=== PATIENT | female | born 1965 | race Two or more races ===

== ENCOUNTER 2020-03-09 23:15 | Inpatient (IN) | payer MEDICARE, MEDICAID ==
[~2020-03-09] VITALS: Ht 154.9 cm; Wt 94.4 kg
--- NOTE | 2020-03-09 23:15 | NUR ---
Direct Admit Note GERMANIA BUTCHER admitted to Telemetry unit as a direct admit from [facility]. Patient oriented to MAREK MCCRARY RN primary RN, unit, room, bed, and unit policies regarding patient care and visiting hours. Patient now on continuous telemetry monitoring, tele box # [id number] and telemetry reading on arrival to unit is sinus rhythm. Patient placed on bedside oxygen, weighed by bedscale and encouraged to call if they need something. All questions and concerns addressed, patient verbalized understanding. MD notified of patients arrival and admit orders received.
[2020-03-09 23:30] VITALS: BP 141/89
[2020-03-10] MEDS ORDERED: ACETAMINOPHEN 500 MG TAB PO PRN
[2020-03-10] MEDS ORDERED: ONDANSETRON HCL 4 MG/2 ML VIAL IV PRN
[2020-03-10] MEDS ORDERED: MORPHINE SULF INJ 2 MG/ML SYRINGE 1ML IV PRN
[2020-03-10] MEDS ORDERED: TRAM50TA2 PO (00:11)
[2020-03-10] MEDS ORDERED: ATOR10TA PO (00:11)
[2020-03-10] MEDS ORDERED: PNEUMOCOCCAL VACC POLYS 25 MCG/0.5 ML VIAL IM ONE (00:15)
[2020-03-10] MEDS ORDERED: ENOXAPARIN SOD 100 MG/1 ML SYRINGE SC ONE (01:00)
[2020-03-10] MEDS: SODIUM CHLORIDE 0.9% 1,000 ML IV SCH ×2 (01:12→14:45)
--- NOTE | 2020-03-10 02:00 | NUR ---
CHEST PAIN Patient c/o 5/10 chest tightness. EKG performed and placed in chart. Vitals signs assessed. BP is 142/100, HR: 73. One dose of Nitroglycerin 0.4mg administered. Reassessed after minutes and patient reports relief of pain. BP is now 137/81, HR: 70. Patient instructed to notify immediately if chest pain returns. Verbalizes understanding. Will continue to monitor for changes PRN.
[2020-03-10] MEDS: NITROGLYCERIN 0.4 MG SL TAB SL PRN ×2 (02:06→08:10)
[2020-03-10 05:00] VITALS: BP 125/82
[2020-03-10 07:44] LABS: Basophils # (auto) 0 10 ^3/uL (0-0.2); Basophils % (auto) 0.5 % (0.0-2.0); Eosinophils # (auto) 0.1 10 ^3/uL (0-0.8); Eosinophils % (auto) 1.9 % (0.0-7.0); Hematocrit 38.9 % (36.0-46.0); Lymphocytes # (auto) 2.2 10 ^3/uL (0.4-5.4); Lymphocytes % (auto) 31.5 % (10.0-50.0); Mean Corpuscular Hemoglobin 30.9 pg (28.0-32.0); Mean Corpuscular Hgb Conc. 33.5 g/dL (32.0-36.0); Mean Corpuscular Volume 92.2 fL (80.0-100.0); Monocytes # (auto) 0.8 10 ^3/uL (0-1.3); Monocytes % (auto) 11.4 % (0.0-12.0); Neutrophils # (auto) 3.9 10 ^3/uL (1.6-8.6); Neutrophils % (auto) 54.7 % (37.0-80.0); Platelet Count (auto) 281 10^3/uL (140-450); Red Blood Cells 4.22 10^6/uL (4.0-5.20); Red Cell Distribution Width 13.6 % (11.8-14.3); White Blood Cell 7.1 10^3/uL (4.4-10.8)
[2020-03-10 07:53] LABS: INR 1.03 (0.9-1.15); Partial Thromboplastin Time 32.5 sec (23.0-31.2)
[2020-03-10 07:56] LABS: Albumin 3.4 g/dL (3.4-5.0); Calcium 8.6 mg/dL (8.5-10.1); Potassium 3.7 mmol/L (3.5-5.1)
[2020-03-10 08:00] LABS: BUN/Creatinine Ratio 14.5; Bilirubin, Total 0.6 mg/dL (0.2-1.0); Total Protein 6.7 g/dL (6.4-8.2)
--- NOTE | 2020-03-10 08:00 | NUR ---
Opening Shift Note Assumed care of patient, awake and alert. No S/S of distress/SOB, denied chest pain. Instructed on POC and to call for assist PRN, will continue to monitor for changes Q1hr and PRN.
--- NOTE | 2020-03-10 08:15 | NUR ---
CHEST PAIN Patient c/o 5/10 chest tightness the same as this morning. Vitals signs assessed. BP is 143/83, HR: 78 o2sat:98% R14 relaxed and even. One dose of Nitroglycerin 0.4mg administered. Reassessed after 5 minutes and patient reports relief of pain pain now 0/0. BP is now BP:135/75, HR: 65 o2sat:99% R14 relaxed and even. Patient instructed to notify immediately if chest pain returns. Verbalizes understanding. Will continue to monitor for changes PRN.
[2020-03-10 09:01] VITALS: BP 143/83
--- NOTE | 2020-03-10 09:30 | NUR ---
MORTGAGE LOAN OFFICER ORIGINATOR Patient transported to slab inspector via hospital bed with tele monitor and o2 2L sat at 98%, denied pain no distress. Endorsed care to preop RN.
[2020-03-10] MEDS: METOPROLOL TARTRATE 25 MG TAB PO SCH ×2 (09:38→22:45)
[2020-03-10] MEDS ORDERED: ENOXAPARIN SOD 100 MG/1 ML SYRINGE SC SCH (10:00)
[2020-03-10] MEDS ORDERED: ASPirin 81 mg TAB PO SCH (10:00)
[2020-03-10] MEDS ORDERED: PANTOPRAZOLE 40 MG TAB PO SCH (10:00)
[2020-03-10] MEDS ORDERED: ANGIOMAX 250 MG VIAL IV ONE (10:03)
[2020-03-10] MEDS ORDERED: SODIUM CHL 0.9% 0 ML ONE (10:04)
[2020-03-10] MEDS ORDERED: LIDOCAINE 2%HCL (LOCAL ANESTH.) INJ 20ML MDV ONE (10:04)
[2020-03-10] MEDS ORDERED: HEPARIN SODIUM (PORCINE) 5000 UNITS/ML 1ML VIAL ONE (10:04)
[2020-03-10] MEDS ORDERED: MIDAZOLAM HCL 1MG/1ML-2 ML VIAL ONE (10:04)
[2020-03-10] MEDS ORDERED: fentaNYL CITRATE 100 MCG/2 ML VL ONE (10:04)
[2020-03-10] MEDS ORDERED: VERAPAMIL 2.5MG/ML INJ 2ML VIAL IV ONE (10:04)
[2020-03-10] MEDS ORDERED: IODIXANOL 320MG/ML 100ML BTL IV ONE (10:05)
--- NOTE | 2020-03-10 10:57 | NUR ---
Patient brought to recovery via bed, report received from KOSTAS Nguyen and Peg RN. Patient is AO x 4, NAD noted. Right radial site is benign, no s/s of bleeding or hematoma formation noted. Vasc Band is in place and positive circulation, movement and sensation noted to BUE. Patient verbalized understanding to post-procedure care.
--- NOTE | 2020-03-10 11:12 | NUR ---
Patient is resting in bed with eyes closed. Breaths are even and unlabored. Right radial site remains unchanged.
[2020-03-10] MEDS ORDERED: HEPARIN DRIP/D5W 100UNITS/ML 250 ML IV SCH ×2 (11:15→20:30)
--- NOTE | 2020-03-10 11:21 | NUR ---
Report given to KOSTAS Oswald.
--- NOTE | 2020-03-10 11:38 | NUR ---
Patient taken to telemetry unit via bed, monitor car operator in place. NAD noted upon departure. Primary RNDarek present at bedside to witness right radial site benign no s/s of bleeding or hematoma formation. Care endorsed to KOSTAS Oswald.
--- NOTE | 2020-03-10 11:45 | NUR ---
RETURNED FROM CAFE ASSISTANT Received report from Lauryn OR nurse bedside. Patient status post left heart cath, pressure dressing to the right wrist is Vac band ;orders to begin deflating 2ml every 15 minutes at 1215. Pulses good, hand warm no hematoma or bleeding from the site.Will continue to monitor. Per Dr Perry and Lauryn patient received a bolus of heparin in the OR and new orders to continue the infusion on the unit to be carried out.
--- NOTE | 2020-03-10 12:15 | NUR ---
Vascular band Removed 2 ml of air from vascular band, no bleeding noticed, will continue to monitor pt.
--- NOTE | 2020-03-10 12:30 | NUR ---
Vascular band Removed 2 ml of air from vascular band, no bleeding noticed, will continue to monitor pt.
--- NOTE | 2020-03-10 12:45 | NUR ---
Vascular band Removed 2 ml of air from vascular band, no bleeding noticed, will continue to monitor pt.
--- NOTE | 2020-03-10 13:00 | NUR ---
Vascular band Removed 2 ml of air from vascular band, no bleeding noticed, will continue to monitor pt.
--- NOTE | 2020-03-10 13:15 | NUR ---
Vascular band Removed 2 ml of air from vascular band, no bleeding noticed, will continue to monitor pt.
[2020-03-10] MEDS: traMADol HCL 50 MG TAB PO PRN (13:25)
--- NOTE | 2020-03-10 14:47 | NUR ---
dr paredes update on transfer per dr, patient will be accepted by haley randle at [facility] this RN requested CHARLENE Cobos to fax all documents to [phone]. Image transfer request ordered stat.
--- NOTE | 2020-03-10 15:38 | NUR ---
1530 03/10/20 - Faxed to [facility] at [phone] and [phone], face sheet, H/P, labs, meds,consultations. Pending review and bed availability. Addendum: 03/10/20 at 1615 by Chandrika Flores RN, CM [id number] 03/10/20 - Faxed Medicare form to [facility] at [phone], contacted [facility] at [phone] patient on [facility] "will call " list. Addendum: 03/10/20 at 1642 by Chandrika Flores RN CM [id number] 03/10/20 - Contacted by [facility] staff development coordinator who is requesting COVID test. Transfer Center can be contacted at [phone] or [phone].
[2020-03-10 16:40] VITALS: BP 139/80
--- NOTE | 2020-03-10 17:30 | NUR ---
dr paredes on the unit to discharge patient discharge placed in the computer and discharge paperwork signed.
--- NOTE | 2020-03-10 18:30 | NUR ---
BED ASSIGNMENT PER CHARLENE MUÑOZ AT [facility] PATIENT WILL BE GOING TO BED 229 REPORT TO BE CALLED AFTER 8PM TO [phone]. [facility] IS [facility]LLISION [facility] AND WILL NEED TO BE CALLED ONCE PATIENTS COVID TEST RESULTS ARE READY [facility] [phone]
--- NOTE | 2020-03-10 18:58 | NUR ---
ENDORSED CARE TO NIGHT CEMENT RUBBER RN WILL STILL NEED TO CALL REPORT TO [facility].
[2020-03-10 20:09] LABS: INR 1.01 (0.9-1.15); Partial Thromboplastin Time 34.8 sec (23.0-31.2)
[2020-03-10] MEDS ORDERED: HEPARIN SODIUM (PORCINE) 5000 UNITS/ML 1ML VIAL IV ONE (20:30)
[2020-03-10 22:00] VITALS: BP 134/72
[2020-03-10] MEDS ORDERED: ATORVASTATIN 20 MG TAB PO SCH (22:00)
[2020-03-11] MEDS: traMADol HCL 50 MG TAB PO PRN (01:28)
--- NOTE | 2020-03-11 01:45 | NUR ---
Received negative covid result from lab. Will contact [facility] and accepting facility for transport.
[2020-03-11 02:46] LABS: Basophils # (auto) 0.1 10 ^3/uL (0-0.2); Basophils % (auto) 1.1 % (0.0-2.0); Eosinophils # (auto) 0.2 10 ^3/uL (0-0.8); Eosinophils % (auto) 2.3 % (0.0-7.0); Hematocrit 41.3 % (36.0-46.0); Hemoglobin 13.9 g/dL (12.2-16.2); Lymphocytes # (auto) 2.2 10 ^3/uL (0.4-5.4); Mean Corpuscular Hemoglobin 31.2 pg (28.0-32.0); Mean Corpuscular Hgb Conc. 33.6 g/dL (32.0-36.0); Mean Corpuscular Volume 92.8 fL (80.0-100.0); Monocytes # (auto) 0.9 10 ^3/uL (0-1.3); Monocytes % (auto) 9.1 % (0.0-12.0); Neutrophils # (auto) 5.9 10 ^3/uL (1.6-8.6); Neutrophils % (auto) 63.5 % (37.0-80.0); Nucleated Red Blood Cells % 0.1 %; Platelet Count (auto) 307 10^3/uL (140-450); Red Blood Cells 4.45 10^6/uL (4.0-5.20); Red Cell Distribution Width 13.4 % (11.8-14.3); White Blood Cell 9.3 10^3/uL (4.4-10.8)
[2020-03-11 03:08] LABS: INR 1.02 (0.9-1.15)
[2020-03-11 03:12] LABS: Partial Thromboplastin Time 88.3 sec (23.0-31.2)
--- NOTE | 2020-03-11 03:17 | NUR ---
Received apptt value of 88.3. Heparin adjusted per protocol.
[2020-03-11] MEDS: SODIUM CHLORIDE 0.9% 1,000 ML IV SCH (04:02)
--- NOTE | 2020-03-11 04:16 | NUR ---
RECEIVED CALL FROM [facility] TO REPORT BAGGAGE SMASHER DELAY. STATED TRANSPORT VAN WOULD ARRIVE AT 1545.
[2020-03-11 05:00] VITALS: BP 138/77
--- NOTE | 2020-03-11 06:21 | NUR ---
PT LEFT WITH [facility]. NO S/S OF DISTRESS NOTED. TELE MONITOR SENT TO ICU. RECEIVING [facility]OSP[facility] IS AWARE.
[2020-03-11] MEDS ORDERED: ENOXAPARIN SOD 100 MG/1 ML SYRINGE SC SCH (10:00)
== END 2020-03-11 06:20 | disposition short-term general hospital (02) | DRG 287 ==
LOC: TELE-WESTW 23:15
PROVIDERS: ADMIT Specialist; ATTEND Specialist
PROC: B2111ZZ Fluoroscopy of Multiple Coronary Arteries using Low Osmolar Contrast (ICD-10-PCS; principal; 2020-03-10)
PROC: 4A023N7 Measurement of Cardiac Sampling and Pressure, Left Heart, Percutaneous Approach (ICD-10-PCS; 2020-03-10)
PROC: B2151ZZ Fluoroscopy of Left Heart using Low Osmolar Contrast (ICD-10-PCS; 2020-03-10)
DX: I24.9 Acute ischemic heart disease, unspecified (principal); I25.110 Atherosclerotic heart disease of native coronary artery with unstable angina pectoris; Z20.828 Contact with and (suspected) exposure to other viral communicable diseases; E78.5 Hyperlipidemia, unspecified; F31.9 Bipolar disorder, unspecified; I10 Essential (primary) hypertension; Z82.3 Family history of stroke; J44.9 Chronic obstructive pulmonary disease, unspecified; Z82.49 Family history of ischemic heart disease and other diseases of the circulatory system; Z87.891 Personal history of nicotine dependence
CPT/HCPCS: 36415; 71045; 80053; 85025; 85610; 85730; 93005; 99152; G0378; J2250; Q9967